=== PATIENT | male | born 1955 | race Caucasian/White ===

== ENCOUNTER 2016-12-20 18:05 | Inpatient (IN) | payer BC, SELFPAY ==
[~2016-12-20] VITALS: Ht 162.6 cm; Wt 66.0 kg
--- NOTE | ~2016-12-20 | CO ---
ADMIT: 12/20/2016 RM/LOC: 416 [facility] MR#: [id number] 2620 [facility] [address] [place], [place] [address] MIKALA ROSADO S [address] [place] [address] Consultation SEX: M AGE: 61 : 1955 DATE OF CONSULTATION: 12/21/2016 ATTENDING PHYSICIAN: John Pacheco CONSULTING PHYSICIAN: Osiel Covarrubias MD You can see full dictated consult done by CHULA Duckworth. Mikala is a 61- year-old male who understands a little Greek comes in with significant anemia, hemoglobin with 3.9, but really otherwise completely asymptomatic as far as that goes. He was admitted because of this, transfused some blood. He does have some weight loss here. Denies any previous EGDs and/or colonoscopies. He denies being a heavy drinker, evidently maybe in the past, but nothing recently. He has had a little bit of epigastric stomach otherwise discomfort. Nothing else has changed. PHYSICAL EXAM: GENERAL: He is in no acute distress. HEENT: His sclerae are nonicteric. CHEST: Appears clear. HEART: Regular rate and rhythm. ABDOMEN: Soft and nondistended. No tenderness. No obvious mass detected. EXTREMITIES: Without clubbing, cyanosis, or edema. At this point, I did talk with Dr. Pacheco who suggested doing a CT scan, and that does show multiple probable liver mets, adenopathy. No obvious colon mass. Question of a stomach thickening, so he may need upper and lower scopes down the road. Dr. Emanuel has seen him as well and has ordered a CT-guided biopsy of the liver. We could do the scope as an outpatient down the road if it is going to be of benefit. We will follow along while he is in the hospital. Sincerely, Osiel Covarrubias MD/ michael CULP: 12/22/2016 10:10:53 JOB #: [id number] CC: John Pacheco, Attending Physician FAMILY PHYSICIAN, Family Physician
--- NOTE | ~2016-12-20 | HP ---
ADMIT: 12/20/2016 RM/LOC: 416 [id number] [id number] [address] [facility] [address] [place], [place] [address] MIKALA ROSADO [address] [place] [address] History and Physical SEX: M AGE: 61 : 1955 DATE OF SERVICE: CHIEF COMPLAINT: Anemia. HISTORY OF PRESENT ILLNESS: The patient is a 61-year-old gentleman, who presented to Family Practice and GI to establish care with Delmar Langeoner today with a 50-pound weight loss over the last 6 months. Only other symptoms are some gastritis and nonspecific fatigue. He states he has also had some small stools and decreased appetite. His only real other medical history, he states 2 years ago he drank some beer, had some bloody stools, went to [facility]. They did some blood work at that time, which he reports was normal. They gave him no known medicine. He otherwise denied any sort of medical problems. PAST MEDICAL HISTORY: None. PAST SURGICAL HISTORY: The patient denies. ALLERGIES: NONE. MEDICATIONS: None. FAMILY HISTORY: None. The patient specifically denies any history of GI problems or blood disorders in his family. REVIEW OF SYSTEMS: He notes gastritis and fatigue. He denies any fevers, chest pain, shortness of breath, headaches, nausea, vomiting, numbness, tingling, vision changes, or melena. SOCIAL HISTORY: He denies tobacco, alcohol, or drug use. He used to work at [employer]. PHYSICAL EXAMINATION: VITAL SIGNS: Blood pressure 102/64, pulse 70, respirations 20, temp is 98.7, and O2 saturation is 100%. GENERAL: He is alert, awake, and oriented, in no distress. HEENT: Normocephalic, atraumatic. Pupils round and reactive to light. HEART: Regular rate and rhythm. LUNGS: Clear to auscultation bilaterally. ABDOMEN: Soft, nontender, nondistended. EXTREMITIES: No clubbing, cyanosis, or edema. ADMIT: 12/20/2016 RM/LOC: 416 [facility] MR#: [id number] [address] [address] MIKALA ROSADO [address] [place] [address] History and Physical SEX: M AGE: 61 : 1955 NEUROLOGIC: Cranial nerves II through XII are grossly intact. No hepatosplenomegaly. LABORATORY DATA: Hemoglobin 3.9 and platelets 249. ASSESSMENT: This is a 61-year-old male with: 1. Anemia. 2. Gastritis. PLAN: We will admit him. We will put him on a Protonix drip, give him IV fluids. We will transfuse him, have Surgery weigh in for possible endoscopy. We will consult Hematology/Oncology. John Pacheco MD/ michael JOB #: [id number] CC: John Pacheco, Attending Physician NO FAMILY PHYSICIAN, Family Physician
--- NOTE | 2016-12-24 10:08 | CO ---
ADMIT: 12/20/2016 RM/LOC: 416 [facility] MR#: [id number] 2620 [facility] [address] [place], [place] [address] GIOVANNI ROSADO [address] [place] [address] Consultation SEX: M AGE: 61 : 1955 DATE OF CONSULTATION: 12/21/2016 ATTENDING PHYSICIAN: John Pacheco CONSULTING PHYSICIAN: Osiel Covarrubias MD REASON FOR CONSULTATION: Anemia, question gastrointestinal blood loss. HISTORY OF PRESENT ILLNESS: Giovanni is a very pleasant, 61-year-old speaking male, who presents with the insidious onset of shortness of breath and weakness. No appetite and weight loss. The patient reports that he has lost roughly about 16 pounds over what sounds like about a month. He also noted shortness of breath when he was doing work around the house such as of lifting boxes. His appetite is also lacking. He eats approximately one tortilla and that satisfies him throughout the day. He denies any pain, nausea, vomiting, dark or bloody stools, or changes in his stools. Because of his symptoms, he was seen in clinic by his primary care physician. At that time, hemoglobin looked to be about 3.9. He has since been admitted to the hospital for anemia and will be receiving blood transfusions and a CAT scan. PAST MEDICAL HISTORY: Migraines. PAST SURGICAL HISTORY: No prior anoscopy. ALLERGIES: NO KNOWN DRUG ALLERGIES. MEDICATIONS: Well documented in chart. FAMILY HISTORY: The patient reports no family history of any cancer. SOCIAL HISTORY: The patient is occasional alcohol user, but denies any tobacco use. REVIEW OF SYSTEMS: CONSTITUTIONAL: The patient denies any fever, chills, or night sweats. The rest of comprehensive 10-point review of systems was performed with all other systems being negative unless otherwise stated in HPI. PHYSICAL EXAMINATION: GENERAL: The patient is in no acute distress. He is alert and oriented. HEENT: Head is normocephalic and atraumatic. EOMs are intact. Conjunctivae free of icterus, erythema, or pallor. Pinnae, free of deformities. Nose is midline. No tracheal deviation. NECK: Supple. SKIN: Negative for jaundice, clubbing, edema, pallor, or cyanosis. LUNGS: Normal respiratory effort. HEART: Distal pulses intact. Regular rate and rhythm. ABDOMEN: Soft, nondistended, nontender. NEURO: Grossly intact. ADMIT: 12/20/2016 RM/LOC: 416 [facility] MR#: [id number] [address] [address] GIOVANNI ROSADO [address] [place] [address] Consultation SEX: M AGE: 61 : 1955 LABORATORY DATA: Please see HPI. ASSESSMENT: Anemia, question gastrointestinal blood loss. PLAN: The plan as of now is to wait on CAT scan results and consider further endoscopy per Dr. Covarrubias. I have discussed this plan with the patient to which he is in agreement of this plan, had all of his questions answered and would like to proceed. We will wait to see what the CAT scan shows, but I also did talk about the risks, alternatives, benefits, and complications of the EGD and colonoscopy including bowel prep with the patient. Thanks for the consultation this patient. CHULA Duckworth / Osiel Covarrubias MD / michael JOB #: [id number] CC: John Pacheco, Attending Physician FAMILY PHYSICIAN, [facility] Physician
[2016-12-24] MEDS ORDERED: VITAMIN B1100 MG PO (10:58)
[2016-12-24] MEDS ORDERED: GLUCOSAMINE/CHO1 TAB PO (10:58)
[2016-12-24] MEDS ORDERED: DAILY MULTIPLE1 EAC1 PO (10:58)
[2016-12-24] MEDS ORDERED: PRILOSEC DPS20 MG PO (10:59)
--- NOTE | 2017-01-07 22:32 | HP ---
ADMIT: 12/20/2016 RM/LOC: 416 [facility] MR#: [id number] 2620 [facility] [address] [facility], [place] [address] MIKALA ROSADO [address] [place] [address] History and Physical SEX: M AGE: 61 : 1955 DATE OF SERVICE: CHIEF COMPLAINT: Weight loss, poor appetite, and intermittent dizziness. HISTORY OF PRESENT ILLNESS: The patient is a 61-year-old male seen in the clinic as a new patient to establish medical care, accompanied to the clinic by his daughter to assist with interpretation. He did have multiple nonspecific somatic complaints, although seemed to be most concerned about weight loss, poor appetite, and reports of positional dizziness. He has noted 20-pound weight loss over the past 4 to 5 months. Symptoms have all been chronic in nature. He also had mentioned some occasional fatigue, although did seem to feel, but he is feeling better today. Also, he had mentioned some pressure in the ears as well as some occasional epigastric abdominal pain, primarily with greasy spicy foods or coffee. His vital signs were all stable and exam essentially unremarkable other than some very mild tenderness in the epigastric area, some very mild positional dizziness, and otherwise no specific orthostatic symptoms noted. His laboratory evaluation revealed hemoglobin of 3.9 with hematocrit of 15.0, MCV 59.8, and platelet count 489,000. The patient admitted due to his rather profound anemia for IV fluids transfusion and Hematology evaluation. PAST MEDICAL HISTORY, PREVIOUS HOSPITALIZATIONS/OPERATIONS: None. Did mention history of migraine headaches, and otherwise, no significant illnesses, injuries, or ongoing medical problems. CURRENT MEDICATIONS: Include: 1. Glucosamine with chondroitin. 2. Vitamin C. ALLERGIES: NO REPORTED MEDICAL ALLERGIES. SOCIAL HISTORY: The patient is and lives at home with his . Currently unemployed, although had been employed with [employer] for nearly 15 years. Denies any past history of tobacco use. Did admit to rather significant alcohol intake over the past several months up to 6 beers per day, although states he quit drinking any form of alcohol two months ago. FAMILY HISTORY: Unremarkable. No familial history of hypertension, coronary artery disease, CVA, cancer, or diabetes reported. He does have multiple siblings who are living and otherwise well. REVIEW OF SYSTEMS: GENERAL: He has noted 20-pound weight loss over the past 4 to 5 months, has also noted some occasional weakness and fatigue. No fever, sweats, or chills reported. HEAD: No history of head trauma or fractures. Did report a prior history of migraine headaches. EENT: Has noted some visual changes which seemed to be more positional in nature. No history of glaucoma, retinopathy, or cataracts. He does wear glasses for corrected visual acuity. No history of chronic recurrent otitis ADMIT: 12/20/2016 RM/LOC: 416 [facility] MR#: [id number] [address] [address] MIKALA ROSADO [facility] [place] [address] History and Physical SEX: M AGE: 61 : 1955 media, sinusitis, or tonsillitis reported. Denies any nasal congestion, sinus drainage, or sore throat pain. Also no history of nasal polyps or epistaxis. NECK: Denies any pain, stiffness, or swelling. CARDIOVASCULAR: No history of murmur, angina, or rheumatic fever. Denies any chest pain, shortness of breath, dyspnea, palpitations, or tachycardia. RESPIRATORY: No history of allergies, asthma, hay fever, bronchitis, or emphysema. Denies any shortness of breath, dyspnea, or wheezing. GI: No history of peptic ulcer disease, gallbladder disease, or intestinal obstruction. No prior history of diverticulitis or polyps. He has noted some very mild intermittent epigastric pain, primarily with food intolerances as well as caffeine. His epigastric discomfort is very minimal at this time. No nausea, vomiting, constipation, or diarrhea. Denies any melena, hematemesis, or hematochezia. : No history of bladder, kidney, or urinary tract infection. No history of urolithiasis. No voiding symptoms at this time. MUSCULOSKELETAL: No history of fractures, subluxations, or dislocations. Denies any prior history of rheumatoid or osteoarthritis. Denies any back pain, joint pain, stiffness, or swelling. No generalized or specific weakness. NEUROLOGIC: No history of seizures or peripheral nerve disorders. Denies any tremors or sensory changes. Does have a history of migraine headaches as previously noted. He does note some occasional lightheadedness or dizziness which has been positional in nature and fairly mild. HEMATOLOGIC: No history of anemia, coagulopathies, or leukemia. ENDOCRINE: No history of diabetes, gout, or thyroid disease. PHYSICAL EXAMINATION: GENERAL: The patient is 61-year-old male, who appears of stated age. He is alert and oriented, and in no acute distress. VITAL SIGNS: Blood pressure 102/64, pulse 70, respirations 22, temperature 98.7, and weight 133. His O2 saturation is 100%. EENT: Head is symmetrical and normocephalic. There is a moderate amount of cerumen present in both external ear canals which was lavaged. Nose is patent. Posterior pharynx is moist. NECK: Supple without adenopathy or thyromegaly. HEART: Regular rate and rhythm. LUNGS: Clear to auscultation. ABDOMEN: Soft with normal bowel sounds in all quadrants. Does have some very mild tenderness in the epigastric area. There is no rebound tenderness, guarding, or CVA tenderness noted. EXTREMITIES: Physiologic range of motion. There is no pedal edema noted. There is some pallor noted of the digits. NEUROLOGIC: Cranial nerves grossly intact. No loss of sensory or motor function noted. He does experience some mild dizziness with positional changes or standing from a squatting position and otherwise no significant orthostasis. ADMIT: 12/20/2016 RM/LOC: 416 [facility] MR#: [id number] [address] JAMEL CHILDRESSMIKALA [address] [place] [address] History and Physical SEX: M AGE: 61 : 1955 LABORATORY DATA: CMP was normal other than calcium of 8.0. T4 and TSH were normal. UA was normal. CBC revealed white count of 3500, hemoglobin 3.9, hematocrit 15.0, MCV 59.8, and platelet count of 489,000. IMPRESSION: 1. Severe microcytic hypochromic anemia, likely chronic. 2. Weight loss by history. 3. History of excessive alcohol use. PLAN: The patient admitted for IV fluids transfusion and Hematology evaluation for his profound anemia. We will pursue further evaluation and treatment as hospital course progresses. Delmar Shafer PA-C / John Pacheco MD / michael JOB #: [id number] CC: John Pacheco, Attending Physician FAMILY PHYSICIAN, Family Physician
--- NOTE | 2017-01-13 15:58 | CO ---
ADMIT: 12/20/2016 RM/LOC: 416 [facility] MR#: [id number] 2620 [facility] [address] [place], [place] [address] MIKALA ROSADO [address] [place] [address] Consultation SEX: M AGE: 61 : 1955 DATE OF CONSULTATION: 12/21/2016 ATTENDING PHYSICIAN: John Pacheco CONSULTING PHYSICIAN: Candy Emanuel MD HISTORY OF PRESENT ILLNESS: This is a pleasant 61-year-old, gentleman with weakness and tiredness, was seen in the clinic by Dr. Pacheco and was found to have a hemoglobin of 3.9. He then had a CBC which shows an MCV of 59 indicating a severe iron deficiency. He has been admitted and transfusion is planned and Hematology consult requested. He denies any change in the bowel habits or dark or bloody stools, and he is also denying any prior blood transfusions or blood related issues. The last blood count was 2 years ago in [facility]. We do not have any prior CBC to compare. No exposure to lead or metals any levels. No history of sickle cell anemia. PAST MEDICAL HISTORY: Pretty much unremarkable as much as it can be obtained from the tax manager public. The patient does not speak good Danish. He had some migraine headaches. SOCIAL HISTORY: , lives at home with his . He has been worked at the [employer]. Denies any history of smoking or alcohol, but has done some alcohol in the past. FAMILY HISTORY: Negative for blood disorders. Negative for lymphoma's, leukemia's, or blood transfusions. REVIEW OF SYSTEMS: Seems to inappropriately better than what his hemoglobin shows, does not look like fatigued or short of breath. He seems to be doing fine. No nausea, vomiting, diarrhea. No blood in the urine. No blood in the stool. No chest pain. No hearing or vision problems. Rest of the systems are negative. PHYSICAL EXAMINATION: VITAL SIGNS: Temperature 98, blood pressure 130/80, pulse rate 70, respirations 20. HEAD, EARS, EYES, NOSE, THROAT EXAM: Normocephalic and atraumatic. Extraocular muscles intact. NECK: Supple. No JVD. No lymph nodes palpable. CHEST: Sounds clear to auscultation and percussion. HEART: Normal S1 and S2. No S3 or S4. No murmurs. ABDOMEN: Soft, nontender. No organomegaly. Bowel sounds positive. EXTREMITIES: No cyanosis, clubbing, or edema. LABORATORY DATA: WBC count 4.0, hemoglobin 3.9, hematocrit 15, and platelets 363. Peripheral smear shows normal differential pattern. Chemistry, pretty much unremarkable. ASSESSMENT AND PLAN: Mr. Aquino is a pleasant 61-year-old, ADMIT: 12/20/2016 RM/LOC: [address] [place] [address] MR#: [id number] [address] [place] [address] JAMEL CHILDRESSMIKALA [facility] [place] [address] Consultation SEX: M AGE: 61 : 1955 gentleman with the severe anemia and the MCV is 59 indicating iron deficiency or microcytic anemia which could be lead poisoning, pyridoxine deficiency, or copper deficiency. I will do the iron binding ferritin saturation levels and then give 2 units of red cells. Also, give Feraheme if the iron studies comes back consistent with iron deficiency. If this is iron deficiency, we would indicate endoscopies to figure out if there is any blood loss anywhere, then we can check the urine and also the bone marrow if no identifiable reason for iron deficiency. Malabsorption could be a factor. Does not give any history of prior gastric bypass surgery or any other interventions. I will follow him along with Dr. Pacheco. I went over about the prognosis, expectations, side effects. All the questions were answered. This encounter took 60 minutes, 35 minutes was [id number]. Candy Emanuel MD/ michael JOB #: [id number] CC: John Pacheco, Attending Physician FAMILY PHYSICIAN, Family Physician
--- NOTE | 2017-01-14 09:59 | DS ---
ADMIT: 12/20/2016 RM/LOC: 416 [facility] MR#: [id number] [address] [facility] [address] [place], [place] [address] MIKALA ROSADO [address] [address] General Discharge Summary SEX: M AGE: 61 : 1955 ADMISSION DATE: 12/20/2016 DISCHARGE DATE: 12/23/2016 DISCHARGE DIAGNOSES: Include: 1. Anemia. 2. Gastritis. 3. Weight loss. 4. History of excess alcohol use. 5. Bradycardia. 6. Metastatic cancer of unknown origin. 7. Prolong QT interval. CONSULTANTS: Include General Surgery and Hematology/Oncology. HISTORY OF PRESENT ILLNESS: Please refer to admission H and P dated 12/20/2016. HOSPITAL COURSE: The patient was admitted. Iron studies were ordered. He was given 2 units of packed red blood cells. He was given IV iron supplementation. He was put on Protonix drip, given IV fluid resuscitation. Imaging was obtained. Biopsy of the liver was ordered. Biopsy was performed on 12/23/2016, with liver lesion. The patient determined safe for discharge. MEDICATIONS: 1. Multivitamin and thiamine. 2. Prilosec 20 b.i.d. PROCEDURES: On 12/23/2016, liver biopsy. LABORATORY DATA: On 12/23/2016, hemoglobin is 8.3. On 12/20/2016, white count 4, hemoglobin 3.9, and platelets 363. Occult blood negative on 12/22/2016. On 12/22/2016, sodium 142, potassium 3.4, chloride 108, CO2 of 22, BUN 7, glucose 84, creatinine 0.7, calcium 8.1, bilirubin is 0.7, TPR of 7.1, albumin 3.3, alkaline phosphatase 97, AST is 24. On 12/20/2016, iron 12, TIBC 459, percent sat 3. On 12/20/2016, B12 was 867, folate is 11.9, ferritin is 1, haptoglobin 232. Methylmalonic acid on 12/20/2016 was less than 0.2. Lead was less than 0.3 on 12/20/2016. Pathology; metastatic adenocarcinoma gastric primary favor colorectal primary. IMAGIN. CT abdomen and pelvis shows multiple liver masses concerning for mets. 2. On 12/21/2016, CT abdomen and pelvis. a. Multiple liver masses concerning for mets. ADMIT: 12/20/2016 RM/LOC: 416 [facility] MR#: [id number] [address] [address] MIKALA ROSADO [facility] [place] [address] General Discharge Summary SEX: M AGE: 61 : 1955 b. Upper abdominal pathologic lymphadenopathy concerning for mets. c. Nonspecific lesser curvature gastric wall thickening, see above. d. Gallbladder nonspecific wall thickening, liver process, correlate clinically to exclude cholecystitis and small ascites. 3. EKG shows sinus bradycardia, prolonged QT interval. Follow up with John Pacheco on , 12/26/2016 at 10:40 with CBC and BMP. He is also to follow up with Oncology and General Surgery. John Pacheco MD/ michael JOB #: [id number] CC: oJhn Pacheco MD, Attending Physician NO FAMILY PHYSICIAN, Family Physician MD Osiel Washington MD
== END 2016-12-23 16:00 | disposition home or self-care (01) | DRG 375 ==
LOC: 3ICU 18:05 → 4PCU 18:05 → 3ICU 19:48 → 4PCU 23:20
PROVIDERS: ADMIT Family Medicine
PROC: 30233N1 Transfusion of Nonautologous Red Blood Cells into Peripheral Vein, Percutaneous Approach (ICD-10-PCS; principal; 2016-12-20)
PROC: 0FB13ZX Excision of Right Lobe Liver, Percutaneous Approach, Diagnostic (ICD-10-PCS; 2016-12-23)
DX: C18.9 Malignant neoplasm of colon, unspecified (principal); C78.7 Secondary malignant neoplasm of liver and intrahepatic bile duct; D50.9 Iron deficiency anemia, unspecified; G43.909 Migraine, unspecified, not intractable, without status migrainosus; R00.1 Bradycardia, unspecified; K29.70 Gastritis, unspecified, without bleeding; R63.4 Abnormal weight loss; Z72.89 Other problems related to lifestyle; Z23 Encounter for immunization

== ENCOUNTER → 2017-01-23 | Outpatient (CLI) | payer BC ==
[~2017-01-23] MED LIST: DAILY MULTIPLE1 EAC1 PO; GLUCOSAMINE/CHO1 TAB PO; PRILOSEC DPS20 MG PO; VITAMIN B1100 MG PO
== END | disposition home or self-care (01) ==
LOC: PTH.S 15:06 → RAD.S 16:00
DX: C22.8 Malignant neoplasm of liver, primary, unspecified as to type (principal); I51.7 Cardiomegaly